=== PATIENT | female | born 1955 | race American Indian/Alaskan Native ===

== ENCOUNTER 2017-11-29 05:39 | Inpatient (IN) | payer OTHER ==
[2017-11-29] MEDS ORDERED: BENADRYL ONE (05:58)
[2017-11-29] MEDS ORDERED: ADRENALINE P/F SUB-Q ONE (06:00)
[2017-11-29] MEDS ORDERED: BENADRYL IV ONE ×2 (06:00→06:14)
[2017-11-29] MEDS ORDERED: PEPCID IV ONE ×3 (06:00→06:14)
[2017-11-29] MEDS ORDERED: ADRENALIN ONE (06:01)
--- NOTE | 2017-11-29 06:19 | Emergency Department Report ---
ED Allergic Reaction HPI - General Chief complaint: Allergic Reaction Stated complaint: UPPER LIP SWELLING Time Seen by Provider: 11/29/17 06:10 Source: patient Mode of arrival: Ambulatory Limitations: No Limitations - History of Present Illness Initial Comments: Patient is 62 years old -[place] female history of hypertension, coronary artery disease and asthma presented to the ER with acute onset SWELLING of the lips and tongue and difficulty breathing. Patient denied any difficulty swallowing. Patient is taking lisinopril for the last 2-3 years. Patient denied any itching or skin rash. No chest pain or shortness of breath at this time. MD Complaint: allergic reaction, facial swelling -: Sudden Exposure: medication Symptoms: facial swelling, lip swelling, difficulty swallowing. denies: difficulty breathing Severity: moderate Treatment Prior to Arrival: none Previous Allergy History: none - Related Data Home Medications Medication Instructions Recorded Confirmed Last Taken Atorvastatin Calcium [Lipitor] 40 mg PO QDAY 11/29/17 11/29/17 11/28/17 Clopidogrel Bisulfate [Plavix] 75 mg PO QDAY 11/29/17 11/29/17 11/28/17 Naproxen [Naprosyn TAB] 500 mg PO BID PRN 11/29/17 11/29/17 Unknown Pantoprazole [Protonix TAB] 40 mg PO QDAY 11/29/17 11/29/17 11/28/17 amLODIPine [Norvasc] 10 mg PO DAILY 11/29/17 11/29/17 11/28/17 Previous Rx's Medication Instructions Recorded Last Taken Type Prednisone [predniSONE 5 mg (6-Day 5 mg PO .TAPER #1 tab.ds.pk 11/30/17 Unknown Rx Pack, 21 Tabs)] Triamter/Hctz 37.5-25 mg 37.5 mg PO QDAY #30 tablet 11/30/17 Unknown Rx [Maxzide-25] diphenhydrAMINE [Benadryl CAP] 25 mg PO Q8H PRN #20 capsule 11/30/17 Unknown Rx Allergies Allergy/AdvReac Type Severity Reaction Status Date / Time aspirin Allergy Bleeding Verified 09/18/13 07:32 lisinopril Allergy Angioedema Verified 11/29/17 05:43 ED Review of Systems ROS: Stated complaint: UPPER LIP SWELLING Other details as noted in HPI Comment: All other systems reviewed and negative Constitutional: denies: chills, fever Respiratory: cough. denies: orthopnea, shortness of breath Cardiovascular: denies: chest pain, palpitations, dyspnea on exertion Gastrointestinal: denies: abdominal pain, nausea, vomiting, diarrhea, constipation Neurological: denies: headache, weakness, numbness, paresthesias ED Past Medical Hx - Past Medical History Previous Medical History?: Yes Hx Hypertension: Yes Hx Asthma: Yes Additional medical history: high cholesterol - Surgical History Past Surgical History?: No - Social History Smoking Status: Former Smoker Substance Use Type: None - Medications Home Medications: Home Medications Medication Instructions Recorded Confirmed Last Taken Type Atorvastatin Calcium [Lipitor] 40 mg PO QDAY 11/29/17 11/29/17 11/28/17 History Clopidogrel Bisulfate [Plavix] 75 mg PO QDAY 11/29/17 11/29/17 11/28/17 History Naproxen [Naprosyn TAB] 500 mg PO BID PRN 11/29/17 11/29/17 Unknown History Pantoprazole [Protonix TAB] 40 mg PO QDAY 11/29/17 11/29/17 11/28/17 History amLODIPine [Norvasc] 10 mg PO DAILY 11/29/17 11/29/17 11/28/17 History Prednisone [predniSONE 5 mg (6-Day 5 mg PO .TAPER #1 tab.ds.pk 11/30/17 Unknown Rx Pack, 21 Tabs)] Triamter/Hctz 37.5-25 mg 37.5 mg PO QDAY #30 tablet 11/30/17 Unknown Rx [Maxzide-25] diphenhydrAMINE [Benadryl CAP] 25 mg PO Q8H PRN #20 capsule 11/30/17 Unknown Rx ED Physical Exam - General Limitations: No Limitations General appearance: alert, in no apparent distress, anxious - Head Head exam: Present: atraumatic, normocephalic, normal inspection - Eye Eye exam: Present: normal appearance, PERRL - ENT ENT exam: Present: mucous membranes moist, other (swelling of the upper lip, tongue is mildly swollen, airway intact.) - Neck Neck exam: Present: normal inspection, full ROM. Absent: tenderness, meningismus, lymphadenopathy - Respiratory Respiratory exam: Present: normal lung sounds bilaterally. Absent: respiratory distress, wheezes, rales, rhonchi, stridor, chest wall tenderness, accessory muscle use, decreased breath sounds, prolonged expiratory - Cardiovascular Cardiovascular Exam: Present: regular rate, normal rhythm, normal heart sounds - GI/Abdominal GI/Abdominal exam: Present: soft, normal bowel sounds. Absent: distended, tenderness, guarding, rebound, rigid, organomegaly, mass, bruit, pulsatile mass , hernia - Extremities Exam Extremities exam: Present: normal inspection, full ROM, normal capillary refill - Back Exam Back exam: Present: normal inspection, full ROM. Absent: tenderness, CVA tenderness (R), CVA tenderness (L), muscle spasm, paraspinal tenderness, vertebral tenderness - Neurological Exam Neurological exam: Present: alert, oriented X3, CN II-XII intact, normal gait - Skin Skin exam: Present: warm, intact, normal color ED Course Vital Signs 11/29/17 11/29/17 11/29/17 05:43 06:12 06:14 Temperature 98.1 F Pulse Rate 110 H 92 H 92 H Respiratory 22 20 Rate Blood Pressure 145/77 Blood Pressure 125/60 [Left] O2 Sat by Pulse 100 99 100 Oximetry 11/29/17 11/29/17 11/29/17 07:00 08:00 09:00 Temperature Pulse Rate 83 75 69 Respiratory 20 16 18 Rate Blood Pressure 116/56 103/54 117/66 Blood Pressure [Left] O2 Sat by Pulse 100 98 100 Oximetry 11/29/17 11/29/17 11/29/17 09:30 09:40 09:50 Temperature Pulse Rate 76 73 78 Respiratory 21 19 22 Rate Blood Pressure 115/64 115/64 115/64 Blood Pressure [Left] O2 Sat by Pulse 100 100 100 Oximetry 11/29/17 11/29/17 11/29/17 10:00 10:10 10:20 Temperature Pulse Rate 66 74 Respiratory 20 15 Rate Blood Pressure 108/56 108/56 108/56 Blood Pressure [Left] O2 Sat by Pulse 100 100 100 Oximetry 11/29/17 11/29/17 10:30 10:58 Temperature 98.7 F Pulse Rate 77 Respiratory 15 Rate Blood Pressure 108/56 121/65 Blood Pressure [Left] O2 Sat by Pulse 100 99 Oximetry - Reevaluation(s) Reevaluation #1: 11/29/17 07:17 Patient stated that she is feeling much better. Swelling is coming down, patient denied any difficulty breathing or difficulty swallowing at this moment. Reevaluation #2: 11/29/17 07:46 Patient stated that she is feeling better, she think her symptoms is improving, she denies shortness of breath, difficulty breathing or difficulty swallowing. Reevaluation #3: 11/29/17 08:18 Reexamined the patient, patient stated that she is feeling much better, heart swelling is coming down, no hoarseness in her voice or difficulty swallowing or difficulty breathing. No stridor noticed. ED Medical Decision Making - Lab Data Result diagrams: 11/30/17 05:41 11/30/17 05:41 - Medical Decision Making Discussed with Dr. Hood, I presented the patient to jayy, he agreed to admit the patient to his service. He advised me to [facility]. Critical Care Time: Yes Critical care time in (mins) excluding proc time.: 30 Critical care attestation.: If time is entered above; I have spent that time in minutes in the direct care of this critically ill patient, excluding procedure time. ED Disposition Clinical Impression: Angioedema, Allergic reaction Disposition: [id number] OP ADMIT IP TO THIS HOSP Is pt being admited?: Yes Condition: Stable
[2017-11-29 06:35] LABS: Basophils % (Auto) 0.6 % (0.0-1.8); Eosinophils # (Auto) 0.1 K/mm3 (0.0-0.4); Eosinophils % (Auto) 1.8 % (0.0-4.3); Hematocrit 32.6 % (30.3-42.9); Hemoglobin 10.7 gm/dl (10.1-14.3); Lymphocytes # (Auto) 3.2 K/mm3 (1.2-5.4); Mean Corpuscular HGB Conc 33 % (30-34); Mean Corpuscular Hemoglobin 27 pg (28-32); Mean Corpuscular Volume 83 fl (79-97); Monocytes # (Auto) 0.8 K/mm3 (0.0-0.8); Monocytes % (Auto) 10.2 % (0.0-7.3); Platelet Count 329 K/mm3 (140-440); Red Blood Count 3.95 M/mm3 (3.65-5.03); Red Cell Distribution Width 14.9 % (13.2-15.2)
[2017-11-29 07:00] LABS: Albumin 4.3 g/dL (3.9-5); Calcium 9.7 mg/dL (8.4-10.2)
[2017-11-29] MEDS ORDERED: TYLENOL PO PRN (08:44)
[2017-11-29] MEDS ORDERED: ZOFRAN IV PRN (08:44)
[2017-11-29] MEDS ORDERED: MILK OF MAGNESIA PO PRN (08:44)
[2017-11-29] MEDS ORDERED: BENADRYL PO PRN (08:45)
[2017-11-29] MEDS ORDERED: DULCOLAX PR PRN (10:00)
[2017-11-29] MEDS ORDERED: NORCO 5/325 PO PRN (10:19)
[2017-11-29] MEDS: PEPCID IV SCH ×2 (10:20→21:49)
[2017-11-29] MEDS: COLACE PO SCH ×2 (11:38→21:50)
--- NOTE | 2017-11-29 16:44 | History and Physical Report ---
History of Present Illness Date of examination: 11/29/17 Date of admission: 11/29/17 09:14 Chief complaint: Angioedema History of present illness: Patient is 62 years old -[place] Citizen female history of hypertension, coronary artery disease and asthma presented to the ER with acute onset SWELLING of the lips and tongue and difficulty breathing. Patient denies any chest pain and odynophagia. The patient denies any change in diet, she has been on Lisinopril for 2-3 years. Patient denied any itching or skin rash. No chest pain or shortness of breath at this time. In the ER the patient was noted to without any Tongue swelling. Past History Past Medical History: arrhythmia, CAD, hypertension, other (asthma) Past Surgical History: appendectomy, PTCA Social history: no significant social history, full code. denies: smoking, alcohol abuse Family history: no significant family history Medications and Allergies Allergies Allergy/AdvReac Type Severity Reaction Status Date / Time aspirin Allergy Bleeding Verified 09/18/13 07:32 lisinopril Allergy Angioedema Verified 11/29/17 05:43 Home Medications Medication Instructions Recorded Confirmed Last Taken Type Triamter/Hctz 37.5-25 mg 37.5 mg PO QDAY 09/18/13 11/29/17 11/28/17 History [Maxzide-25] Atorvastatin Calcium [Lipitor] 40 mg PO QDAY 11/29/17 11/29/17 11/28/17 History Clopidogrel Bisulfate [Plavix] 75 mg PO QDAY 11/29/17 11/29/17 11/28/17 History Naproxen [Naprosyn] 500 mg PO BID PRN 11/29/17 11/29/17 Unknown History Pantoprazole [Protonix] 40 mg PO QDAY 11/29/17 11/29/17 11/28/17 History amLODIPine [Norvasc] 10 mg PO DAILY 11/29/17 11/29/17 11/28/17 History Active Meds: Active Medications Acetaminophen (Tylenol) 650 mg PO Q4H PRN PRN Reason: Pain MILD(1-3)/Fever >100.5/ANDUJAR Acetaminophen/Hydrocodone Bitart ([place] 5/325) 1 each PO Q6HR PRN PRN Reason: Pain Amlodipine Besylate (Norvasc) 10 mg PO DAILY TEODORA Aspirin (Baby Aspirin) 81 mg PO DAILY [facility] Atorvastatin Calcium (Lipitor) 20 mg PO QDAY [facility] Bisacodyl (Dulcolax) 10 mg [place] QDAY PRN PRN Reason: Constipation unrelieved by MOM Diphenhydramine HCl (Benadryl) 25 mg PO Q8H PRN PRN Reason: Itching Docusate Sodium (Colace) 100 mg PO BID [facility] Last Admin: 11/29/17 11:38 Dose: 100 mg Famotidine (Pepcid) 20 mg IV BID [facility] Last Admin: 11/29/17 10:20 Dose: 20 mg Influenza Virus Vaccine Quadrival (Fluarix Quad [id number](36 Mos+) 0.5 ml IM .ONCE ONE Stop: 11/30/17 12:16 Magnesium Hydroxide (Milk Of Magnesia) 30 ml PO Q4H PRN PRN Reason: Constipation Methylprednisolone Sodium Succinate (Solu-Medrol) 80 mg IV Q8HR [facility] Last Admin: 11/29/17 13:28 Dose: Not Given Ondansetron HCl (Zofran) 4 mg IV Q8H PRN PRN Reason: N/V unrelieved by Reglan Pneumococcal Polyvalent Vaccine (Pneumovax 23) 0.5 ml IM .ONCE ONE Stop: 11/30/17 12:01 Triamterene/HCTZ (Maxzide-25) 1 each PO QDAY [facility] Review of Systems Constitutional: no weight loss, no weight gain, no fever, no chills, no sweats, no night sweats, no anorexia, no fatigue, no weakness, no lethargy, no chronic headaches, no poor appetite, no daytime sleepiness, no chronic pain Ears, nose, mouth and throat: no ear pain, no ear discharge, no decreased hearing, no nose pain, no nasal congestion, no nasal discharge Cardiovascular: shortness of breath, no chest pain, no orthopnea, no palpitations, no rapid/irregular heart beat, no edema, no syncope, no lightheadedness, no dyspnea on exertion, no paroxysmal nocturnal dyspnea, no phlebitis Respiratory: shortness of breath, dyspnea on exertion, no cough, no cough with sputum, no excessive sputum, no hemoptysis, no congestion, no wheezing, no pleurisy, no sleep apnea Gastrointestinal: no abdominal pain, no nausea, no vomiting, no diarrhea, no constipation, no change in bowel habits, no hematochezia, no early satiety, no heartburn, no indigestion, no jaundice, no dyspepsia/bloating, no lactose intolerance Rectal: no pain Musculoskeletal: no neck stiffness, no neck pain, no shooting arm pain, no arm numbness/tingling, no hot joints, no muscle cramps, no myalgias, no atrophy, no fractures, no loss of height, no arthritis Integumentary: rash, no deferred, no wounds, no jaundice, no boils, no blisters , no bullae, no dryness, no color changes, no change in hair/nails, no brittle nails, no striae, no foot/leg ulcers Neurological: change in speech, no head injury, no transient paralysis, no paralysis, no weakness, no parathesias, no tingling, no seizures, no syncope, no headaches, no migraines, no convulsions, no change in mentation, no motor disturbance, no sensory deficit, no double vision, no hearing difficulties, no paralysis Psychiatric: no anxiety, no memory loss, no change in sleep habits, no sleep disturbances, no change in appetite, no paranoia, no depression, no hopelessness , no anhedonia, no confusion, no sadness/tearfullness Endocrine: no polydipsia, no polyuria, no proptosis, no deepening of the voice, no palpatations, no low blood sugars, no recent glucocorticoid use Hematologic/Lymphatic: no easy bruising, no easy bleeding, no lymphadenopathy, no lymphedema Allergic/Immunologic: angioedema Exam - Physical Exam Narrative exam: VITAL SIGNS: Reviewed. GENERAL: The patient appeared well nourished and normally developed. Vital signs as documented. HEAD: No signs of head trauma. EYES: Pupils are equal. Extraocular motions intact. EARS: Hearing grossly intact. MOUTH: Upper lips swollen NECK: No adenopathy, no JVD. CHEST: Chest with clear breath sounds bilaterally. No wheezes, rales, or rhonchi. CARDIAC: Regular rate and rhythm. S1 and S2, without murmurs, gallops, or rubs. VASCULAR: No Edema. Peripheral pulses normal and equal in all extremities. ABDOMEN: Soft, without detectable tenderness. No sign of distention. No rebound or guarding, and no masses palpated. Bowel Sounds normal. MUSCULOSKELETAL: Good range of motion of all major joints. Extremities without clubbing, cyanosis or edema. NEUROLOGIC EXAM: Alert and oriented x 3. No focal sensory or strength deficits. Speech is slightly slurred. Follows commands. PSYCHIATRIC: Mood normal. SKIN: No rash or lesions. - Constitutional Vitals: Temp Pulse Resp BP Pulse Ox 98.5 F 81 15 133/79 99 11/29/17 14:53 11/29/17 14:53 11/29/17 14:53 11/29/17 14:53 11/29/17 14:53 Results - Labs CBC & Chem 7: 11/29/17 06:22 11/29/17 06:22 Labs: Laboratory Last Values WBC 7.5 K/mm3 (4.5-11.0) 11/29/17 06:22 RBC 3.95 M/mm3 (3.65-5.03) 11/29/17 06:22 Hgb 10.7 gm/dl (10.1-14.3) 11/29/17 06:22 Hct 32.6 % (30.3-42.9) 11/29/17 06:22 MCV 83 fl (79-97) 11/29/17 06:22 MCH 27 pg (28-32) L 11/29/17 06:22 MCHC 33 % (30-34) 11/29/17 06:22 RDW 14.9 % (13.2-15.2) 11/29/17 06:22 Plt Count 329 K/mm3 (140-440) 11/29/17 06:22 Lymph % (Auto) 42.0 % (13.4-35.0) H 11/29/17 06:22 [place] % (Auto) 10.2 % (0.0-7.3) H 11/29/17 06:22 Eos % (Auto) 1.8 % (0.0-4.3) 11/29/17 06:22 Baso % (Auto) 0.6 % (0.0-1.8) 11/29/17 06:22 Lymph # 3.2 K/mm3 (1.2-5.4) 11/29/17 06:22 [place] # 0.8 K/mm3 (0.0-0.8) 11/29/17 06:22 Eos # 0.1 K/mm3 (0.0-0.4) 11/29/17 06:22 Baso # 0.0 K/mm3 (0.0-0.1) 11/29/17 06:22 Seg Neutrophils % 45.4 % (40.0-70.0) 11/29/17 06:22 Seg Neutrophils # 3.4 K/mm3 (1.8-7.7) 11/29/17 06:22 Sodium 143 mmol/L (137-145) 11/29/17 06:22 Potassium 4.4 mmol/L (3.6-5.0) 11/29/17 06:22 Chloride 104.6 mmol/L (98-107) 11/29/17 06:22 Carbon Dioxide 22 mmol/L (22-30) 11/29/17 06:22 Anion Gap 21 mmol/L 11/29/17 06:22 BUN 30 mg/dL (7-17) H 11/29/17 06:22 Creatinine 1.2 mg/dL (0.7-1.2) 11/29/17 06:22 Estimated GFR 55 ml/min 11/29/17 06:22 BUN/Creatinine Ratio 25 % 11/29/17 06:22 Glucose 116 mg/dL (65-100) H 11/29/17 06:22 Calcium 9.7 mg/dL (8.4-10.2) 11/29/17 06:22 Total Bilirubin 0.40 mg/dL (0.1-1.2) 11/29/17 06:22 AST 17 units/L (5-40) 11/29/17 06:22 ALT 14 units/L (7-56) 11/29/17 06:22 Alkaline Phosphatase 106 units/L (35-129) 11/29/17 06:22 Total Protein 7.2 g/dL (6.3-8.2) 11/29/17 06:22 Albumin 4.3 g/dL (3.9-5) 11/29/17 06:22 Albumin/Globulin Ratio 1.5 % 11/29/17 06:22 Assessment and Plan Assessment and plan: Patient is 62 years old -[place] Citizen female history of hypertension, coronary artery disease and asthma presented to the ER with acute onset SWELLING of the lips and tongue and difficulty breathing. Patient denies any chest pain and odynophagia. The patient denies any change in diet, she has been on Lisinopril for 2-3 years. Patient denied any itching or skin rash. No chest pain or shortness of breath at this time. In the ER the patient was noted to without any Tongue swelling. Angioedema Acute Respiratory distress secondary to Angioedema HTN CAD ASTHMA Morbid obesity PLAN: * Discontinue ACEI and advised the patient to avoid this medication * Continue solumedrol and PPI and Benedryl * Continue home medications * Admit to the medical/surg with Telemetry * DVT/GI Prophy Advance Directives: Yes Plan of care discussed with patient/family: Yes
[2017-11-30 06:29] LABS: Basophils % (Auto) 0.6 % (0.0-1.8); Eosinophils % (Auto) 0.1 % (0.0-4.3); Hematocrit 33.3 % (30.3-42.9); Hemoglobin 10.9 gm/dl (10.1-14.3); Lymphocytes # (Auto) 1.5 K/mm3 (1.2-5.4); Lymphocytes % (Auto) 16.4 % (13.4-35.0); Mean Corpuscular HGB Conc 33 % (30-34); Mean Corpuscular Hemoglobin 27 pg (28-32); Mean Corpuscular Volume 82 fl (79-97); Monocytes # (Auto) 0.1 K/mm3 (0.0-0.8); Monocytes % (Auto) 1.4 % (0.0-7.3); Platelet Count 342 K/mm3 (140-440); Red Blood Count 4.05 M/mm3 (3.65-5.03); Red Cell Distribution Width 14.1 % (13.2-15.2)
[2017-11-30 06:38] LABS: BUN/Creatinine Ratio 24; Blood Urea Nitrogen 24 mg/dL (7-17); Calcium 9.6 mg/dL (8.4-10.2); Hemolysis Index 9
[2017-11-30 08:33] VITALS: BP 132/70
--- NOTE | 2017-11-30 09:31 | Discharge Summary ---
Providers - Providers Date of Admission: 11/29/17 09:14 Attending physician: MARKIE COLES MD Primary care physician: PRUDENCIO HILL Hospitalization Reason for admission: angioedema Condition: Stable Hospital course: Patient is 62 years old -[place] female history of hypertension, coronary artery disease and asthma presented to the ER with acute onset SWELLING of the lips and tongue and difficulty breathing. Patient denies any chest pain and odynophagia. The patient denies any change in diet, she has been on Lisinopril for 2-3 years. Patient denied any itching or skin rash. No chest pain or shortness of breath at this time. In the ER the patient was noted to without any Tongue swelling. Patient was treated with steroids and discontinuation of lisinopril. She also reports that her doctor took her off of aspirin and this was discontinued. She is clinically stable at this point her lips swelling has decreased significantly. She'll be discharged home on tapering dose of steroids PPI and also Benadryl and to follow with her primary care physician. Her blood pressures remained stable. I also recommended that she follows with an financial reporting consultant Discharge diagnosis Angioedema Acute Respiratory distress secondary to Angioedema HTN CAD ASTHMA Morbid obesity Disposition: DC TO HOME OR SELFCARE Time spent for discharge: 30 Core Measure Documentation - Palliative Care Palliative Care/ Comfort Measures: Not Applicable - Core Measures Any of the following diagnoses?: none - VTE Discharge Requirements Deep Vein Thrombosis/Pulmonary Embolism Present on Admission: No Exam - Physical Exam Narrative exam: VITAL SIGNS: Reviewed. GENERAL: The patient appeared well nourished and normally developed. Vital signs as documented. HEAD: No signs of head trauma. EYES: Pupils are equal. Extraocular motions intact. EARS: Hearing grossly intact. MOUTH: Upper lips swollen much improved tongue appears to be normal size NECK: No adenopathy, no JVD. CHEST: Chest with clear breath sounds bilaterally. No wheezes, rales, or rhonchi. CARDIAC: Regular rate and rhythm. S1 and S2, without murmurs, gallops, or rubs. VASCULAR: No Edema. Peripheral pulses normal and equal in all extremities. ABDOMEN: Soft, without detectable tenderness. No sign of distention. No rebound or guarding, and no masses palpated. Bowel Sounds normal. MUSCULOSKELETAL: Good range of motion of all major joints. Extremities without clubbing, cyanosis or edema. NEUROLOGIC EXAM: Alert and oriented x 3. No focal sensory or strength deficits. Speech is slightly slurred. Follows commands. PSYCHIATRIC: Mood normal. SKIN: No rash or lesions. - Constitutional Vitals: Temp Pulse Resp BP Pulse Ox 98.1 F 87 20 132/70 96 11/30/17 07:52 11/30/17 07:52 11/30/17 07:52 11/30/17 07:52 11/30/17 07:52 Plan Activity: advance as tolerated, fall precautions Diet: low cholesterol, low salt Special Instructions: record daily BP diary Follow up with: PRUDENCIO HILL MD [Primary Care Provider] - 3-5 Days Prescriptions: diphenhydrAMINE [Benadryl CAP] 25 mg PO Q8H PRN #20 capsule PRN Reason: Itching Prednisone [predniSONE 5 mg (6-Day Pack, 21 Tabs)] 5 mg PO .TAPER #1 tab.ds.pk Triamter/Hctz 37.5-25 mg [Maxzide-25] 37.5 mg PO QDAY #30 tablet
[2017-11-30] MEDS ORDERED: ATORVASTATIN PO SCH (10:00)
[2017-11-30] MEDS ORDERED: NORVASC PO SCH (10:00)
[2017-11-30] MEDS ORDERED: BABY ASPIRIN PO SCH (10:00)
[2017-11-30] MEDS ORDERED: MAXZIDE-25 PO SCH (10:00)
[2017-11-30] MEDS ORDERED: AMLODIPINE PO SCH (10:00)
[2017-11-30] MEDS: PEPCID IV SCH (10:16)
[2017-11-30] MEDS: COLACE PO SCH (10:16)
[2017-11-30] MEDS ORDERED: PNEUMOVAX 23 IM ONE (12:00)
[2017-11-30] MEDS ORDERED: Fluarix Quad 2017-2018(36 MOS+ IM ONE (12:15)
== END 2017-11-30 14:00 | disposition home or self-care (01) | DRG 916 ==
LOC: ED 05:39 → 3A 09:14
PROVIDERS: ADMIT Internal Medicine; ATTEND Internal Medicine
PROC: 3E0234Z Introduction of Serum, Toxoid and Vaccine into Muscle, Percutaneous Approach (ICD-10-PCS; principal; 2017-11-30)
DX: T78.3XXA Angioneurotic edema, initial encounter (principal); T78.40XA Allergy, unspecified, initial encounter; I10 Essential (primary) hypertension; I25.10 Atherosclerotic heart disease of native coronary artery without angina pectoris; R13.10 Dysphagia, unspecified; R06.03 Acute respiratory distress; J45.909 Unspecified asthma, uncomplicated; E66.01 Morbid (severe) obesity due to excess calories; Z68.38 Body mass index [BMI] 38.0-38.9, adult; Z79.899 Other long term (current) drug therapy; Z88.6 Allergy status to analgesic agent; Z90.49 Acquired absence of other specified parts of digestive tract; Z98.61 Coronary angioplasty status; Z23 Encounter for immunization
CPT/HCPCS: 36415; 80048; 80053; 85025; 90686; 90732; 96372; 96374; 96375; 99291; A9270-GY; J0171; J1200; J2930

== ENCOUNTER 2020-09-25 17:59 | Emergency (ER) | payer SELFPAY ==
[2020-09-25 19:18] LABS: Bilirubin,Urine NEG (Negative); Blood,Urine SM (Negative); Color,Urine Yellow (Yellow); Mucus,Urine FEW /HPF; Urobilinogen,Urine < 2.0 mg/dL (<2.0)
[2020-09-25 19:48] LABS: Alanine Aminotransferase 18 units/L (7-56); Albumin 4.5 g/dL (3.9-5); BUN/Creatinine Ratio 15; Blood Urea Nitrogen 12 mg/dL (7-17); Calcium 10.1 mg/dL (8.4-10.2); Hemolysis Index 9
[2020-09-25 19:49] LABS: Basophils # (Auto) 0.1 K/mm3 (0.0-0.1); Basophils % (Auto) 0.6 % (0.0-1.8); Eosinophils % (Auto) 0.2 % (0.0-4.3); Hematocrit 40.5 % (30.3-42.9); Hemoglobin 13.4 gm/dl (10.1-14.3); Lymphocytes % (Auto) 22.6 % (13.4-35.0); Mean Corpuscular HGB Conc 33 % (30-34); Mean Corpuscular Volume 84 fl (79-97); Monocytes # (Auto) 0.6 K/mm3 (0.0-0.8); Monocytes % (Auto) 6.1 % (0.0-7.3); Platelet Count 331 K/mm3 (140-440); Red Blood Count 4.85 M/mm3 (3.65-5.03); Red Cell Distribution Width 14.8 % (13.2-15.2)
--- NOTE | 2020-09-25 19:49 | Event Note ---
ED Screening Note Date of service: 09/25/20 Time: 18:16 ED Screening Note: 65-year-old -[place] female presents to emergency room for nausea and vomiting pain in her abdomen and back since Monday. Patient states not able to keep any food down. This initial assessment/diagnostic orders/clinical plan/treatment(s) is/are subject to change based on patients health status, clinical progression and re- assessment by fellow clinical providers in the ED. Further treatment and workup at subsequent clinical providers discretion. Patient/guardian urged not to elope from the ED as their condition may be serious if not clinically assessed and managed. Initial orders include:
[2020-09-26] MEDS ORDERED: ONDANSETRON 4 MG/2 ML INJ IV ONE (01:05)
[2020-09-26] MEDS ORDERED: SODIUM CHLORIDE 0.9% 1000 ML 1,000 ML IV ONE (01:05)
[2020-09-26] MEDS ORDERED: FAMOTIDINE 20 MG/2 ML INJ IV ONE (01:05)
[2020-09-26] MEDS ORDERED: MORPHINE 4 MG/1 ML INJ IV ONE (01:05)
--- NOTE | 2020-09-26 01:46 | XRay Report ---
CHEST 1 VIEW, 09/26/2020 12:35 AM CLINICAL INFORMATION/INDICATION: Cough COMPARISON: None. FINDINGS: SUPPORT DEVICES: None. HEART: The cardiac silhouette is normal in size. LUNGS/PLEURA: The lungs are clear of focal airspace disease or significant pleural effusion. ADDITIONAL FINDINGS: No additional acute findings. IMPRESSION: 1. No evidence of acute cardiopulmonary process. Signer Name: Babs Pang MD Signed: 09/26/2020 1:41 AM Workstation Name: [id number]
--- NOTE | 2020-09-26 02:27 | Cat Scan Report ---
CT ABDOMEN AND PELVIS WITH IV CONTRAST INDICATION: Abdominal pain TECHNIQUE: Following the administration of intravenous contrast, multiple axial CT images of the abdo men and pelvis were acquired. Sagittal and coronal reformats were obtained. All CT performed at this facility utilize dose reduction techniques including automated exposure control, iterative reconstru ction and weight based dosing when appropriate to reduce patient radiation dose to as low as reasonab ly achievable. COMPARISON: None FINDINGS: Limited imaging of the bilateral lung bases demonstrates no acute abnormality ABDOMEN: LIVER: A few simple cysts are noted within the left hepatic lobe, the largest of which measures 1.5 c m GALLBLADDER: No significant abnormality. BILE DUCTS: No significant abnormality. PANCREAS: There is mild inflammatory stranding at the head of the pancreas. SPLEEN: No significant abnormality. ADRENALS: No significant abnormality. RIGHT KIDNEY / URETER: No significant abnormality. LEFT KIDNEY / URETER: No significant abnormality. STOMACH / SMALL BOWEL: There is mild inflammatory stranding of the distal stomach and first portion o f the duodenum COLON: No significant abnormality. APPENDIX: No significant abnormality. PERITONEUM: No free fluid. No free air. No fluid collection. LYMPH NODES: No significant adenopathy. AORTA / ARTERIES: No significant abnormality. IVC / VEINS: No significant abnormality. PELVIS: URINARY BLADDER: No significant abnormality. REPRODUCTIVE ORGANS: The uterus is mildly enlarged and contains multiple fibroids. SKELETAL SYSTEM: There are moderate bony degenerative changes of the thoracolumbar spine IMPRESSION: 1. Mild inflammatory stranding at the level of the distal stomach and head of the pancreas. This coul d suggest mild pancreatitis or gastritis. Please correlate with patient's clinical symptoms. 2. Calcified uterine fibroids. Signer Name: Babs Pang MD Signed: 09/26/2020 2:22 AM Workstation Name: [id number]
--- NOTE | 2020-09-26 02:39 | Emergency Department Report ---
ED Abdominal Pain HPI - General Chief Complaint: Abdominal Pain Stated Complaint: NAUSEA Source: patient Mode of arrival: Wheelchair Limitations: No Limitations - History of Present Illness Initial Comments: Patient is a 65-year-old -[place] female with a history of hypertension, GERD, hyperlipidemia and asthma who presents to the ED with complaint of acute onset persistent epigastric pain with nausea for the last 2 days. Patient states that the pain also radiates in the left lower quadrant area. Patient describes the pain as constant, persistent and worse with food. Patient denies vomiting, fever, chills, cough, chest pain or shortness of breath, dysuria, urin michael frequency and urgency, hematemesis, hematochezia, constipation, dizziness, headache or low back pain and vaginal discharge or vaginal bleeding. MD Complaint: abdominal pain -: Sudden, days(s) (2) Location: epigastric Radiation: LLQ, epigastric Migration to: no migration Severity: severe Severity scale (0 -10): 9 Quality: cramping, aching, sharp Consistency: constant Improves With: eating Worsens With: eating Associated Symptoms: denies other symptoms, nausea, anorexia. denies: vomiting, diarrhea, fever, chills, constipation, dysuria, hematemesis, hematochezia, melena - Related Data Home Medications Medication Instructions Recorded Confirmed Last Taken Atorvastatin Calcium [Lipitor] 40 mg PO QDAY 11/29/17 11/29/17 11/28/17 Clopidogrel Bisulfate [Plavix] 75 mg PO QDAY 11/29/17 11/29/17 11/28/17 Naproxen [Naprosyn TAB] 500 mg PO BID PRN 11/29/17 11/29/17 Unknown amLODIPine 10 mg PO DAILY 11/29/17 11/29/17 11/28/17 Previous Rx's Medication Instructions Recorded Last Taken Type Prednisone [predniSONE 5 mg (6-Day 5 mg PO .TAPER #1 tab.ds.pk 11/30/17 Unknown Rx Pack, 21 Tabs)] Triamter/Hctz 37.5-25 mg 37.5 mg PO QDAY #30 tablet 11/30/17 Unknown Rx [Maxzide-25] diphenhydrAMINE [Benadryl CAP] 25 mg PO Q8H PRN #20 capsule 11/30/17 Unknown Rx Dicyclomine [Bentyl] 20 mg PO Q6H PRN #30 tablet 09/26/20 Unknown Rx Famotidine [Pepcid] 20 mg PO BID #60 tablet 09/26/20 Unknown Rx Ondansetron [Zofran Odt] 4 mg PO Q6HR PRN #20 tab.rapdis 09/26/20 Unknown Rx Pantoprazole [Protonix TAB] 40 mg PO QDAY #60 09/26/20 Unknown Rx Allergies Allergy/AdvReac Type Severity Reaction Status Date / Time aspirin Allergy Bleeding Verified 09/18/13 07:32 lisinopril Allergy Angioedema Verified 11/29/17 05:43 ED Review of Systems ROS: Stated complaint: NAUSEA Other details as noted in HPI Constitutional: denies: chills, fever Eyes: denies: eye pain, eye discharge, vision change ENT: denies: ear pain, throat pain Respiratory: denies: cough, shortness of breath, wheezing Cardiovascular: denies: chest pain, palpitations Endocrine: no symptoms reported Gastrointestinal: abdominal pain (epigastric pain), nausea. denies: vomiting, diarrhea Genitourinary: denies: urgency, dysuria, discharge Musculoskeletal: denies: back pain, joint swelling, arthralgia Skin: denies: rash, lesions Neurological: denies: headache, weakness, paresthesias Psychiatric: denies: anxiety, depression Hematological/Lymphatic: denies: easy bleeding, easy bruising ED Past Medical Hx - Past Medical History Previous Medical History?: Yes Hx Hypertension: Yes Hx Congestive Heart Failure: No Hx Diabetes: No Hx GERD: Yes Hx Asthma: Yes Hx COPD: No Hx HIV: No Additional medical history: high cholesterol - Social History Smoking Status: Former Smoker Substance Use Type: None - Medications Home Medications: Home Medications Medication Instructions Recorded Confirmed Last Taken Type Atorvastatin Calcium [Lipitor] 40 mg PO QDAY 11/29/17 11/29/17 11/28/17 History Clopidogrel Bisulfate [Plavix] 75 mg PO QDAY 11/29/17 11/29/17 11/28/17 History Naproxen [Naprosyn TAB] 500 mg PO BID PRN 11/29/17 11/29/17 Unknown History amLODIPine 10 mg PO DAILY 11/29/17 11/29/17 11/28/17 History Prednisone [predniSONE 5 mg (6-Day 5 mg PO .TAPER #1 tab.ds.pk 11/30/17 Unknown Rx Pack, 21 Tabs)] Triamter/Hctz 37.5-25 mg 37.5 mg PO QDAY #30 tablet 11/30/17 Unknown Rx [Maxzide-25] diphenhydrAMINE [Benadryl CAP] 25 mg PO Q8H PRN #20 capsule 11/30/17 Unknown Rx Dicyclomine [Bentyl] 20 mg PO Q6H PRN #30 tablet 09/26/20 Unknown Rx Famotidine [Pepcid] 20 mg PO BID #60 tablet 09/26/20 Unknown Rx Ondansetron [Zofran Odt] 4 mg PO Q6HR PRN #20 tab.rapdis 09/26/20 Unknown Rx Pantoprazole [Protonix TAB] 40 mg PO QDAY #60 09/26/20 Unknown Rx ED Physical Exam - General Limitations: No Limitations General appearance: alert, in no apparent distress - Head Head exam: Present: atraumatic, normocephalic, normal inspection - Eye Eye exam: Present: normal appearance, PERRL, EOMI Pupils: Present: normal accommodation - ENT ENT exam: Present: normal exam, normal orophraynx, mucous membranes moist, TM's normal bilaterally, normal external ear exam - Neck Neck exam: Present: normal inspection, full ROM - Respiratory Respiratory exam: Present: normal lung sounds bilaterally. Absent: respiratory distress, wheezes, rales, chest wall tenderness, accessory muscle use, prolonged expiratory - Cardiovascular Cardiovascular Exam: Present: regular rate, normal rhythm, normal heart sounds. Absent: systolic murmur, diastolic murmur, rubs, gallop - GI/Abdominal GI/Abdominal exam: Present: soft, tenderness (Palpable epigastric pain t enderness, no guarding, no rebound), normal bowel sounds. Absent: guarding, rebound, rigid, hyperactive bowel sounds, hypoactive bowel sounds, organomegaly, mass, bruit, pulsatile mass - Extremities Exam Extremities exam: Present: normal inspection, full ROM, normal capillary refill - Back Exam Back exam: Present: normal inspection, full ROM. Absent: tenderness, CVA tenderness (R), CVA tenderness (L), muscle spasm, paraspinal tenderness, vertebral tenderness - Neurological Exam Neurological exam: Present: alert, oriented X3, CN II-XII intact, normal gait, reflexes normal - Psychiatric Psychiatric exam: Present: normal affect, normal mood - Skin Skin exam: Present: warm, dry, intact, normal color. Absent: rash ED Course Vital Signs 09/25/20 18:06 Temperature 98.8 F Pulse Rate 77 Respiratory 18 Rate Blood Pressure 176/87 [Right] O2 Sat by Pulse 99 Oximetry ED Medical Decision Making - Lab Data Result diagrams: 09/25/20 18:53 09/25/20 18:53 - Radiology Data Radiology results: report reviewed, image reviewed Findings [address] [address] Cat Scan Report Signed Patient: RAFITA RAHMAN MR#: [id number] : 1955 Acct:[id number] Age/Sex: 65 / F ADM Date: 09/25/20 Loc: ED Attending Dr: Ordering Physician: TAYLOR HOLCOMB Date of Service: 09/26/20 Procedure(s): CT abdomen pelvis w con Accession Number(s): [id number] cc: TAYLOR HOLCOMB CT ABDOMEN AND PELVIS WITH IV CONTRAST INDICATION: Abdominal pain TECHNIQUE: Following the administration of intravenous contrast, multiple axial CT images of the abdomen and pelvis were acquired. Sagittal and coronal reformats were obtained. All CT performed at this facility utilize dose reduction techniques including automated exposure control, iterative reconstruction and weight based dosing when appropriate to reduce patient radiation dose to as low as reasonably achievable. COMPARISON: None FINDINGS: Limited imaging of the bilateral lung bases demonstrates no acute abnormality ABDOMEN: LIVER: A few simple cysts are noted within the left hepatic lobe, the largest of which measures 1.5 cm GALLBLADDER: No significant abnormality. BILE DUCTS: No significant abnormality. PANCREAS: There is mild inflammatory stranding at the head of the pancreas. SPLEEN: No significant abnormality. ADRENALS: No significant abnormality. RIGHT KIDNEY / URETER: No significant abnormality. LEFT KIDNEY / URETER: No significant abnormality. STOMACH / SMALL BOWEL: There is mild inflammatory stranding of the distal stomach and first portion of the duodenum COLON: No significant abnormality. APPENDIX: No significant abnormality. PERITONEUM: No free fluid. No free air. No fluid collection. LYMPH NODES: No significant adenopathy. AORTA / ARTERIES: No significant abnormality. IVC / VEINS: No significant abnormality. PELVIS: URINARY BLADDER: No significant abnormality. REPRODUCTIVE ORGANS: The uterus is mildly enlarged and contains multiple fibroids. SKELETAL SYSTEM: There are moderate bony degenerative changes of the t horacolumbar spine IMPRESSION: 1. Mild inflammatory stranding at the level of the distal stomach and head of the pancreas. This could suggest mild pancreatitis or gastritis. Please correlate with patient's clinical symptoms. 2. Calcified uterine fibroids. Signer Name: Babs Pang MD Signed: 09/26/2020 2:22 AM Workstation Name: [id number] Transcribed By: EB Dictated By: Babs Pang MD Electronically Authenticated By: Babs Pang MD Signed Date/Time: 09/26/20221 DD/ 4 TD/TT: -------- Findings [facility] [address] [place] [address] XRay Report Signed Patient: RAFITA RAHMAN MR#: [id number] : 1955 Acct:[id number] Age/Sex: 65 / F ADM Date: 09/25/20 Loc: ED Attending Dr: Ordering Physician: TAYLOR HOLCOMB Date of Service: 09/26/20 Procedure(s): XR chest 1V ap Accession Number(s): [id number] cc: TAYLOR HOLCOMB Fluoro Time In Minutes: CHEST 1 VIEW, 09/26/2020 12:35 AM CLINICAL INFORMATION/INDICATION: Cough COMPARISON: None. FINDINGS: SUPPORT DEVICES: None. HEART: The cardiac silhouette is normal in size. LUNGS/PLEURA: The lungs are clear of focal airspace disease or significant pleural effusion. ADDITIONAL FINDINGS: No additional acute findings. IMPRESSION: 1. No evidence of acute cardiopulmonary process. Signer Name: Babs Pang MD Signed: 09/26/2020 1:41 AM Workstation Name: [id number] Transcribed By: EB Dictated By: Babs Pang MD Electronically Authenticated By: Babs Pang MD Signed Date/Time: 09/26/20140 DD/ 0 TD/TT: - Medical Decision Making This is a 65-year-old -[place] female with a history of hypertension, GERD, hyperlipidemia and asthma who presents to the ED with complaint of acute onset persistent epigastric pain with nausea for the last 2 days. Patient states that the pain also radiates in the left lower quadrant area. Patient describes the pain as constant, persistent and worse with food. In the ED, patient is alert and oriented x3 and is not in distress. Patient was treated for pain in the ED and also given antiemetics and antacids as well as normal saline 1 L IV bolus x1. Chest x-ray shows no acute cardiopulmonary abnormalities or pneumonitis. Abdomen pelvis CT scan with contrast showed mild inflammatory stranding at the level of the distal stomach and head of the pancreas. This could suggest mild pancreatitis or gastritis. Please correlate with patient's clinical symptoms. In addition, it also showed calcified uterine fibroids. On reevaluation, patient's pain is well controlled with medications. Patient was discharged home and advised to maintain a clear liquid diet for 12 to 24 hours, and to follow-up with her primary care physician in 5 to 7 days for reevaluation. Patient was also given a referral to the GI physician Dr. Bruna Hensley for follow-up in 2 to 3 days. Patient was advised to contact Dr. Hensley's office first thing the morning on Monday, September 28, 2020 to schedule a follow-up appointment. Patient was advised return to the ED immediately if symptoms get worse. - Differential Diagnosis GERD; Diverticulitis; Pancreatitis; Cholelithiasis; appendicitis; UTI Critical care attestation.: If time is entered above; I have spent that time in minutes in the direct care of this critically ill patient, excluding procedure time. ED Disposition Clinical Impression: Acute epigastric pain, Acute duodenitis GERD (gastroesophageal reflux disease) Qualifiers: Esophagitis presence: without esophagitis Qualified Code(s): K21.9 - Gastro- esophageal reflux disease without esophagitis Acute pancreatitis Qualifiers: Pancreatitis type: unspecified pancreatitis type Acute pancreatitis compl ication: unspecified Qualified Code(s): K85.90 - Acute pancreatitis without necrosis or infection, unspecified Acute gastritis without bleeding Qualifiers: Gastritis type: unspecified gastritis Qualified Code(s): K29.00 - Acute gastritis without bleeding Disposition: TO HOME OR SELFCARE Is pt being admited?: No Does the pt Need Aspirin: No Condition: Stable Instructions: Abdominal Pain (ED), Gastritis, Adult, [id number], Acute Pancreatitis, [id number], Abdominal Pain, Adult, [id number], Gastroesophageal Reflux Disease, Adult, [id number], Food Choices for Gastroesophageal Reflux Disease, Adult, [id number] Additional Instructions: Lab test results showed acute pancreatitis. Abdomen pelvis CT scan with contras t showed inflammation of the distal stomach and proximal duodenum as well as inflammation of the pancreas consistent with elevated lipase levels. Therefore maintain a clear liquid diet for 12 to 24 hours, drink plenty of fluids while taking medications for pain. Follow-up with the GI physician Dr. Hensley as advised. Contact his office first thing in the morning on Monday, September 28, 2020 to schedule a follow-up appointment. Otherwise follow-up with your primary care physician in 5 to 7 days for reevaluation. Prescriptions: Dicyclomine [Bentyl] 20 mg PO Q6H PRN #30 tablet PRN Reason: abdominal pain Famotidine [Pepcid] 20 mg PO BID #60 tablet Pantoprazole [Protonix TAB] 40 mg PO QDAY #60 Ondansetron [Zofran Odt] 4 mg PO Q6HR PRN #20 tab.rapdis PRN Reason: Nausea Referrals: CYNTHIA HENSLEY MD [Staff Physician] - 3-5 Days Time of Disposition: 03:08 Print Language: ALBANIAN
[2020-09-26 06:24] VITALS: BP 130/85
== END 2020-09-26 03:45 | disposition home or self-care (01) ==
LOC: ED 17:59
DX: K29.80 Duodenitis without bleeding (principal); K21.9 Gastro-esophageal reflux disease without esophagitis; K85.90 Acute pancreatitis without necrosis or infection, unspecified; K29.00 Acute gastritis without bleeding; I10 Essential (primary) hypertension; J45.909 Unspecified asthma, uncomplicated; Z87.891 Personal history of nicotine dependence; Z79.899 Other long term (current) drug therapy; Z88.6 Allergy status to analgesic agent; Z88.8 Allergy status to other drugs, medicaments and biological substances
CPT/HCPCS: 36415; 71045; 74177; 80053; 81001; 83690; 84484; 85025; 93005; 96361; 96374; 96375; 99284; J2270; J2405; J7030; Q9967